=== PATIENT | male | born 1955 | race Caucasian/White ===

== ENCOUNTER → 2020-06-04 | Outpatient (RCR) | payer BC | END | disposition home or self-care (01) | LOC: PT → EDSEX 03-28 09:22 → PT 03-28 09:22 | DX: G20 Parkinson's disease (principal) ==

== ENCOUNTER 2020-06-07 15:50 | Outpatient (RCR) | payer BC | END 2020-07-23 16:30 | disposition home or self-care (01) | LOC: PT 15:50 | DX: G20 Parkinson's disease (principal) ==

== ENCOUNTER 2021-07-05 14:18 | Outpatient (RCR) | payer BC | END 2021-07-29 | disposition home or self-care (01) | LOC: PT | DX: M54.41 Lumbago with sciatica, right side (principal) ==

== ENCOUNTER 2021-08-02 12:59 | Outpatient (RCR) | payer BC | END 2021-08-29 | disposition home or self-care (01) | LOC: PT | DX: M54.41 Lumbago with sciatica, right side (principal) ==

== ENCOUNTER 2021-12-24 08:58 | Outpatient (RCR) | payer BC | END 2021-12-29 | disposition home or self-care (01) | LOC: OT | DX: G24.9 Dystonia, unspecified (principal) ==

== ENCOUNTER 2021-12-30 08:02 | Outpatient (RCR) | payer BC | END 2022-01-29 | disposition home or self-care (01) | LOC: OT | DX: G24.9 Dystonia, unspecified (principal) ==

== ENCOUNTER → 2022-01-13 | Outpatient (CLI) | payer BC | LOC: RAD 13:00 | DX: M48.061 Spinal stenosis, lumbar region without neurogenic claudication (principal); Z98.1 Arthrodesis status ==